=== PATIENT | male | born 2000 | race Hispanic/Latino ===

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

== ENCOUNTER 2020-08-20 15:10 | Emergency (ER) | payer BC ==
--- NOTE | 2020-08-20 15:45 | EDPHYS ---
Physician Documentation [facility] Name: Xu Baldwin Age: 20 yrs Sex: Male : 2000 Arrival Date: 08/20/2020 Time: 15:13 Bed 7 Private MD: ED Physician Germán Cooper HPI: 08/20 15:51 This 20 yrs old Male presents to ER via Ambulatory with complaints of r/o jr8 covid. 15:51 Associated signs and symptoms: Pertinent positives: cough, headache, vomiting. jr8 Modifying factors: The patient symptoms are alleviated by nothing, the patient symptoms are aggravated by nothing. The patient has not experienced similar symptoms in the past. The patient has not recently seen a physician. Patient stated that he needed to get COVID test so he can see new PCP for headache, nausea, cough, body aches. Only wants COVID test at this time . Historical: - Allergies: 15:25 No Known Allergies; iw - Home Meds: 15:25 None [Active]; iw - PMHx: 15:25 None; iw - PSHx: 15:25 None; iw - Immunization history:: Adult Immunizations. - Social history:: Smoking status: Patient denies any tobacco usage or history of. ROS: 15:51 Eyes: Negative for injury, pain, redness, and discharge, ENT: Negative for injury, jr8 pain, and discharge, Neck: Negative for injury, pain, and swelling, Cardiovascular: Negative for chest pain, palpitations, and edema, Back: Negative for injury and pain, MS/Extremity: Negative for injury and deformity, Skin: Negative for injury, rash, and discoloration. 15:51 Constitutional: Positive for body aches, Negative for fever, malaise. 15:51 Respiratory: Positive for cough, Negative for dyspnea on exertion, shortness of breath, sputum production, wheezing. 15:51 Abdomen/GI: Positive for nausea and vomiting, Negative for abdominal pain, diarrhea, constipation, abdominal cramps, abdominal distension. 15:51 Neuro: Positive for headache. Exam: 15:51 Eyes: Pupils equal round and reactive to light, extra-ocular motions intact. Lids and jr8 lashes normal. Conjunctiva and sclera are non-icteric and not injected. Cornea within normal limits. Periorbital areas with no swelling, redness, or edema. ENT: Nares patent. No nasal discharge, no septal abnormalities noted. Tympanic membranes are normal and external auditory canals are clear. Oropharynx with no redness, swelling, or masses, exudates, or evidence of obstruction, uvula midline. Mucous membranes moist. Neck: Trachea midline, no thyromegaly or masses palpated, and no cervical lymphadenopathy. Supple, full range of motion without nuchal rigidity, or vertebral point tenderness. No Meningismus. Cardiovascular: Regular rate and rhythm with a normal S1 and S2. No gallops, murmurs, or rubs. Normal PMI, no JVD. No pulse deficits. Respiratory: Lungs have equal breath sounds bilaterally, clear to auscultation and percussion. No rales, rhonchi or wheezes noted. No increased work of breathing, no retractions or nasal flaring. Abdomen/GI: Soft, non-tender, with normal bowel sounds. No distension or tympany. No guarding or rebound. No evidence of tenderness throughout. Back: No spinal tenderness. No costovertebral tenderness. Full range of motion. Skin: Warm, dry with normal turgor. Normal color with no rashes, no lesions, and no evidence of cellulitis. MS/ Extremity: Pulses equal, no cyanosis. Neurovascular intact. Full, normal range of motion. Neuro: Awake and alert, GCS 15, oriented to person, place, time, and situation. Cranial nerves II-XII grossly intact. Motor strength 5/5 in all extremities. Sensory grossly intact. Cerebellar exam normal. Normal gait. Vital Signs: 15:20 BP 137 / 96; Pulse 83; Resp 16 S; Temp 98.2; Pulse Ox 100% on R/A; Weight 79.83 kg; iw Height 6 ft. 2 in. (187.96 cm); Pain 7/10; 15:20 Body Mass Index 22.60 (79.83 kg, 187.96 cm) iw MDM: 15:37 Patient medically screened. [facility] 15:42 Data reviewed: vital signs, nurses notes, lab test result(s), and as a result, I will [facility] discharge patient. Data interpreted: Pulse oximetry: on room air is 100 %. Interpretation: normal. Counseling: I had a detailed discussion with the patient and/or guardian regarding: the historical points, exam findings, and any diagnostic results supporting the discharge/admit diagnosis, lab results, the need for outpatient follow up, a family practitioner, to return to the emergency department if symptoms worsen or persist or if there are any questions or concerns that arise at home. ED course: Patient only wants covid test. Does not want to evaluate him for headache or other symptoms he is having . 08/20 15:42 Order name: COVID-Jose Carlos pascal Administered Medications: No medications were administered Disposition: 16:16 Co-signature as Attending Physician, Germán Cooper MD. rn Disposition: 08/20/20 15:44 Discharged to Home. Impression: Nausea and vomiting, Encounter for screening for other viral diseases. - Condition is Stable. - Discharge Instructions: Nausea and Vomiting, Adult, COVID-19. - Prescriptions for Zofran 4 mg Oral Tablet - take 1 tablet by ORAL route every 12 hours As needed; 20 tablet. - Work release form, Medication Reconciliation Form, Thank You Letter, Antibiotic Education, Prescription Opioid Use form. - Follow up: Private Physician; When: As needed; Reason: Recheck today's complaints, Continuance of care, Re-evaluation by your physician. - Problem is new. - Symptoms are unchanged. Signatures: Dispatcher [employer] EDTiffani Ibarra RN RN iw Nieto, Roman, MD MD rn Roszak, Josh, PA PA jr8 Corrections: (The following items were deleted from the chart) 16:08 15:44 08/20/2020 15:44 Discharged to Home. Impression: Nausea and vomiting; Encounter iw for screening for other viral diseases. Condition is Stable. Forms are Medication Reconciliation Form, Thank You Letter, Antibiotic Education, Prescription Opioid Use. Follow up: Private Physician; When: As needed; Reason: Recheck today's complaints, Continuance of care, Re-evaluation by your physician. Problem is new. Symptoms are unchanged. jr8
--- NOTE | 2020-08-20 15:45 | ER ---
Nurse's Notes [facility] Name: Xu Baldwin Age: 20 yrs Sex: Male : 2000 Arrival Date: 08/20/2020 Time: 15:13 Bed 7 Private MD: Diagnosis: Nausea and vomiting;Encounter for screening for other viral diseases Presentation: 08/20 15:20 Chief complaint: Patient states: headache X 1 week, not able to sleep, n/v yesterday iw and cough , also has body aches, was trying to be seen as new patient at Dr. Kwan's office and was told he needed a covid test first. Coronavirus screen: chills, cough unrelated to allergies, fatigue, vomiting. Client presents with at least one sign or symptom that may indicate coronavirus-19. Standard/surgical mask placed on the client. Provider contacted for isolation considerations. Ebola Screen: Patient negative for fever greater than or equal to 101.5 degrees Fahrenheit, and additional compatible Ebola Virus Disease symptoms Patient denies exposure to infectious person. Patient denies travel to an Ebola-affected area in the 21 days before illness onset. No symptoms or risks identified at this time. Initial Sepsis Screen: Does the patient meet any 2 criteria? No. Patient's initial sepsis screen is negative. Does the patient have a suspected source of infection? No. Patient's initial sepsis screen is negative. Risk Assessment: Do you want to hurt yourself or someone else? Patient reports no desire to harm self or others. Onset of symptoms was August 16, 2020. 15:20 Method Of Arrival: Ambulatory iw 15:20 Acuity: MILENA 4 iw Triage Assessment: 16:00 General: Appears in no apparent distress. Behavior is calm. iw Historical: - Allergies: 15:25 No Known Allergies; iw - Home Meds: 15:25 None [Active]; iw - PMHx: 15:25 None; iw - PSHx: 15:25 None; iw - Immunization history:: Adult Immunizations. - Social history:: Smoking status: Patient denies any tobacco usage or history of. Screenin:07 Abuse screen: Denies threats or abuse. Denies injuries from another. Nutritional iw screening: No deficits noted. Tuberculosis screening: No symptoms or risk factors identified. Fall Risk None identified. Assessment: 15:30 General: Appears in no apparent distress. comfortable, Behavior is calm, cooperative. iw General: Reports chills for feeling ill for fatigue for. Pain: Complains of pain in head. Neuro: Level of Consciousness is awake, alert, obeys commands, Oriented to person, place, time, situation, Moves all extremities. Full function. Cardiovascular: Patient's skin is warm and dry. Respiratory: Reports cough that is Respiratory effort is even, unlabored, Respiratory pattern is regular, symmetrical. GI: Reports nausea, vomiting. Derm: Skin is intact, is healthy with good turgor. 16:05 Reassessment: Patient appears in no apparent distress at this time. Patient and/or iw family updated on plan of care and expected duration. Pain level reassessed. Patient is alert, oriented x 3, equal unlabored respirations, skin warm/dry/pink. Vital Signs: 15:20 BP 137 / 96; Pulse 83; Resp 16 S; Temp 98.2; Pulse Ox 100% on R/A; Weight 79.83 kg; iw Height 6 ft. 2 in. (187.96 cm); Pain 7/10; 15:20 Body Mass Index 22.60 (79.83 kg, 187.96 cm) ED Course: 15:13 Patient arrived in ED. as 15:23 Triage completed. 15:25 Jamil Guidry RN is Primary Nurse. 7 15:25 Dave Gibson PA is PHCP. jr8 15:25 Germán Cooper MD is Attending Physician. jr8 15:25 Arm band placed on. iw 15:30 Patient has correct armband on for positive identification. 15:59 COVID-[facility] 15:59 COVID 19. 5 16:11 No provider procedures requiring assistance completed. Patient did not have IV access iw during this emergency room visit. Administered Medications: No medications were administered Outcome: 15:44 Discharge ordered by . jr8 16:07 Discharged to home ambulatory. iw 16:07 Condition: good 16:07 Discharge instructions given to patient, Instructed on discharge instructions, follow up and referral plans. medication usage, Demonstrated understanding of instructions, follow-up care, medications, Prescriptions given X 1. 16:08 Patient left the ED. iw Addendum: 08/24/2020 08:07 Addendum: COVID-19 Result: Negative result given to RN to notify pt. Attempted to i w contact pt regarding negative COVID-19 swab results. Unable to leave voice mail due to the number provided was either not a working number, the voice mail has not been set up, or the voice mailbox is full.. 08/25/2020 13:51 Addendum: COVID-19 Result: Negative result given to RN to notify pt. Notified pt of i w negative COVID 19 swab results. Pt advised that even with a negative test result they should remain in isolation until symptom free for 3 days without medication. Pt also advised to return to the ED for worsening symptoms. Signatures: Kamila Beatty Irene, RN RN Dave Quintero PA PA jr8 Sarita Beatty mh5 Jamil Guidry RN RN [id number]
[2020-08-20 16:12] VITALS: BP 137/96; TEMP 98.2; O2SAT 100
== END 2020-08-20 16:08 | disposition home or self-care (01) ==
LOC: ER 15:10
DX: R11.2 Nausea with vomiting, unspecified (principal); Z20.828 Contact with and (suspected) exposure to other viral communicable diseases
CPT/HCPCS: 99283; U0002

== ENCOUNTER 2022-10-01 17:34 | Emergency (ER) | payer BC, OTHER ==
[2022-10-01] MEDS ORDERED: MORPHINE 4 MG/ML SYR ONE (18:17)
[2022-10-01] MEDS ORDERED: MUPIROCIN 2% OINT 22GM TUBE TOP ONE (18:26)
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
[2022-10-01 18:51] VITALS: TEMP 98.2
[2022-10-01 18:52] VITALS: BP 118/84; O2SAT 98
== END 2022-10-01 18:45 | disposition home or self-care (01) ==
LOC: ER 17:34
DX: T23.102A Burn of first degree of left hand, unspecified site, initial encounter (principal); F17.210 Nicotine dependence, cigarettes, uncomplicated
CPT/HCPCS: 96372; 99283